=== PATIENT | male | born 1960 | race African-American/Black ===

== ENCOUNTER 2019-10-12 20:43 | Emergency (ER) | payer BC ==
[~2019-10-12] VITALS: Ht 188 cm; Wt 132.0 kg
[~2019-10-12 20:43] MED LIST: CYCLOBENZAPRINE5 MG PO; CYMBALTA60 MG PO; LISINOPRIL-HCT1 EAC1 PO; LISINOPRIL-HCT1 EACH; MOBIC15 MG PO; NORCO 5-325 TA1 EACH PO; ULTRAM 50MG TAB50 MG PO; XANAX 0.25 MG0.25 MG; ZOFRAN4 MG PO
[2019-10-12] MEDS ORDERED: NORVASC10 MG PO (20:52)
[2019-10-12] MEDS ORDERED: XANAX 0.5 MG0.5 M1 PO (20:53)
[2019-10-12] MEDS ORDERED: BUSPIRONE HCL15 MG PO (20:54)
[2019-10-12] MEDS ORDERED: SERTRALINE HCL100 MG PO (20:54)
[2019-10-12] MEDS ORDERED: FLOMAX0.4 MG PO (20:55)
[2019-10-12] MEDS ORDERED: TRIAMTERENE/HCT1 CA1 PO (20:55)
[2019-10-12] MEDS ORDERED: DESYREL150 MG PO (20:56)
[2019-10-12 21:11] LABS: URINE BILIRUBIN NEGATIVE (Negative); URINE BLOOD 1+ (Negative); URINE CLARITY CLEAR; URINE COLOR YELLOW; URINE GLUCOSE-RANDOM* NEGATIVE (Negative); URINE KETONES NEGATIVE (Negative); URINE LEUKOCYTES-REFLEX NEGATIVE (Negative); URINE NITRITE-REFLEX NEGATIVE (Negative); URINE PROTEIN (DIPSTICK) NEGATIVE (Negative); URINE SPECIFIC GRAVITY >= 1.030 (1.005-1.035)
[2019-10-12 21:26] LABS: CASTS None Seen /LPF (None Seen); MUCUS None Seen strn/LPF (None Seen); SQUAMOUS None Seen /LPF (0-3); URINE WBC-REFLEX None Seen /HPF (0-5)
[2019-10-12 21:27] LABS: BACTERIA-REFLEX None Seen /HPF (None Seen); CRYSTALS None Seen /LPF (None Seen); URINE RBC 0-2 Rare /HPF (0-2)
[2019-10-12 21:41] LABS: ABSOLUTE NEUTROPHILS 6.2 thou/uL (1.4-8.2); BASOPHILS 0.8 % (0.0-2.0); EOSINOPHILS 0.9 % (0.0-3.0); HEMATOCRIT 40.6 % (42.0-52.0); HEMOGLOBIN 14.1 gm/dL (14.0-18.0); MCH 31.9 pg (26.0-34.0); MCHC 34.7 g/dL (28.0-37.0); MCV 91.7 fL (80.0-100.0); MONOCYTES 10.6 % (1.0-8.0); PLATELET COUNT 231 thou/uL (150-400); POLYS 61.7 % (36.0-66.0); RBC 4.43 mil/uL (4.50-6.00); RDW 13.5 % (10.5-14.5); WBC 10.1 thou/uL (4.0-11.0)
[2019-10-12 21:51] LABS: ANION GAP 7 mmol/L (7-16); BUN 24 mg/dL (7-18); CALCIUM 8.7 mg/dL (8.5-10.1); CHLORIDE 104 mmol/L (98-107); CO2 28 mmol/L (21-32); CREATININE 1.4 mg/dL (0.7-1.3); GLUCOSE 118 mg/dL (74-106); POTASSIUM 3.7 mmol/L (3.5-5.1); SODIUM 139 mmol/L (136-145)
[2019-10-12 22:08] LABS: ALBUMIN 3.7 g/dL (3.4-5.0); DIRECT BILIRUBIN < 0.1 mg/dL (<0.1-0.2); LIPASE 113 U/L (73-393); SGOT 12 U/L (15-37); SGPT 21 U/L (30-65); TOTAL BILIRUBIN 0.5 mg/dL (0.2-1.0); TOTAL PROTEIN 6.8 g/dL (6.4-8.2)
[2019-10-13] MEDS ORDERED: CARAFATE1 GM PO (00:30)
[2019-10-13] MEDS ORDERED: PRILOSEC OTC20 MG PO (00:30)
[2019-10-13 00:57] VITALS: BP 133/81
== END 2019-10-13 01:00 | disposition home or self-care (01) ==
LOC: ER 20:43
PROVIDERS: Emergency Medicine
DX: K27.9 Peptic ulcer, site unspecified, unspecified as acute or chronic, without hemorrhage or perforation (principal); I10 Essential (primary) hypertension; Z79.899 Other long term (current) drug therapy